=== PATIENT | male | born 1945 | race African-American/Black ===

== ENCOUNTER → 2018-02-09 | Outpatient (CLI) | payer MEDICARE, BC ==
--- NOTE | 2018-02-09 15:36 | RAD ---
EXAM: Head CT without contrast. HISTORY: Subdural hematoma follow-up. TECHNIQUE: Computed tomographic images of the head were obtained without contrast. *One or more of the following individualized dose reduction techniques were utilized for this examination: 1. Automated exposure control. 2. Adjustment of the mA and/or kV according to patient size. 3. Use of iterative reconstruction technique. COMPARISON: 01/21/2018. FINDINGS: There has been near complete interval resolution of a previously demonstrated right subdural hematoma. There are right craniotomy changes with a slight persistent underlying hyperdense extra-axial collection measuring 3 mm in thickness. No new hemorrhage is seen.. There are areas of decreased attenuation within the cerebral white matter, nonspecific and likely related to chronic small vessel disease. There is cerebral volume loss. There are basal ganglia calcifications. The visualized portions of the orbits and paranasal sinuses are unremarkable. The mastoid air cells are clear. IMPRESSION: 1. Near complete interval resolution of a previously demonstrated right subdural hematoma. There is a thin persistent hyperdense extra-axial collection underlying right craniotomy changes likely due to residual blood products. There is no midline shift or new hemorrhage. 2. Scattered areas of hypodensity within the cerebral white matter, a nonspecific finding likely due to chronic small vessel disease. Electronically signed by: Marjorie Beavers MD (02/09/2018 3:33 PM) [id number]
== END | disposition home or self-care (01) ==
LOC: CT 15:11
PROVIDERS: ATTEND Neurological Surgery
DX: I62.00 Nontraumatic subdural hemorrhage, unspecified (principal)
CPT/HCPCS: 70450